=== PATIENT | male | born 1990 | race Two or more races ===

== ENCOUNTER 2022-10-30 00:16 | Emergency (ER) | payer OTHER ==
[~2022-10-30] VITALS: Ht 195.6 cm; Wt 81.6 kg
== END 2022-10-30 04:24 | disposition home or self-care (01) ==
LOC: ER 00:16
DX: S93.401A Sprain of unspecified ligament of right ankle, initial encounter (principal); X58.XXXA Exposure to other specified factors, initial encounter; Y93.67 Activity, basketball; Y92.89 Other specified places as the place of occurrence of the external cause; Y99.9 Unspecified external cause status; Z88.8 Allergy status to other drugs, medicaments and biological substances